=== PATIENT | female | born 1965 | race Caucasian/White ===

== ENCOUNTER 2025-02-15 12:57 | Emergency (ER) | payer BC, MEDICAID ==
[~2025-02-15] VITALS: Ht 160 cm; Wt 60.0 kg
[2025-02-15 12:59] VITALS: O2SAT 98
[2025-02-15] MEDS: METOCLOPRAMIDE HCL 10MG TABLET PO SCH (14:00)
[2025-02-15] MEDS: ACETAMINOPHEN 500MG TABLET PO SCH (14:00)
[2025-02-15] MEDS: SUMATRIPTAN SUCCINATE 25MG TABLET PO ONE (14:00)
[2025-02-15] MEDS: KETOROLAC 30MG/ML VIAL IM SCH (14:00)
[2025-02-15] MEDS ORDERED: IMIT25 MT (15:07)
[2025-02-15] MEDS ORDERED: ACET-2708 MT (15:07)
[2025-02-15 15:10] VITALS: BP 101/55; PULSE 61; RESP 20; TEMP 36.8; O2SAT 98
== END 2025-02-15 15:14 | disposition home or self-care (01) ==
LOC: ER 12:57
DX: R51.9 Headache, unspecified (principal); Z86.59 Personal history of other mental and behavioral disorders; Z98.890 Other specified postprocedural states
CPT/HCPCS: 99284; 96372; J1885; J8597